=== PATIENT | female | born 1945 | race Caucasian/White ===

== ENCOUNTER 2016-07-17 12:28 | Emergency (ER) | payer MEDICARE, MEDICAID | END 2016-07-17 14:56 | disposition home or self-care (01) | LOC: ER 12:28 | DX: R42 Dizziness and giddiness (principal); E11.9 Type 2 diabetes mellitus without complications; I10 Essential (primary) hypertension; E78.00 Pure hypercholesterolemia, unspecified; Z79.84 Long term (current) use of oral hypoglycemic drugs; Z79.82 Long term (current) use of aspirin; Z87.820 Personal history of traumatic brain injury; I48.91 Unspecified atrial fibrillation; Z85.3 Personal history of malignant neoplasm of breast | CPT/HCPCS: 36415; 70450; 80053; 82947; 85025; 93005 ==